=== PATIENT | male | born 1935 | race Caucasian/White ===

== ENCOUNTER 2018-01-15 12:01 | Inpatient (IN) | payer MEDICARE, OTHER ==
[~2018-01-15] VITALS: Ht 188 cm; Wt 123.6 kg
[2018-01-15 12:22] LABS: BASOPHILS # (AUTO) 0.03 x10^3/uL (0-0.1); BASOPHILS % (AUTO) 0 % (0-1); EOSINOPHILS # (AUTO) 0.22 x10^3/uL (0-0.4); EOSINOPHILS % (AUTO) 3 % (1-7); LYMPHOCYTES # (AUTO) 1.65 x10^3/uL (1-3.4); LYMPHOCYTES % (AUTO) 23 % (22-44); MD NO; MEAN CORPUSCULAR HEMOGLOBIN 31.1 pg (27.5-34.5); MEAN CORPUSCULAR HGB CONC 33.2 g/dL (33.2-36.2); MEAN CORPUSCULAR VOLUME 93.6 fL (81-97); MONOCYTES # (AUTO) 0.57 x10^3/uL (0.2-0.8); MONOCYTES % (AUTO) 8 % (2-9); NEUTROPHILS # (AUTO) 4.77 x10^3/uL (1.8-6.8); NEUTROPHILS % (AUTO) 66 % (42-75); PLATELET COUNT 224 x10^3/uL (130-400); RED BLOOD COUNT 4.72 x10^6/uL (4.38-5.82); RED CELL DISTRIBUTION WIDTH 14.2 % (9.4-14.8)
[2018-01-15 12:31] LABS: INTERNATIONAL NORMALIZED RATIO 1.06 (0.93-1.1); PROTHROMBIN TIME 10.9 Seconds (9.6-11.5)
[2018-01-15] MEDS ORDERED: ALTEPLASE 1 MG/ML ONE (12:41)
[2018-01-15 12:44] LABS: TROPONIN I < 0.015 ng/mL (0.000-0.045)
[2018-01-15] MEDS ORDERED: ALTEPLASE 0 MG in BAG 1 EACH IV ONE (13:00)
[2018-01-15] MEDS ORDERED: ALTEPLASE 9 MG in SYRINGE 1 EA IV ONE (13:00)
[2018-01-15] MEDS ORDERED: LEVO125T5 PO (13:12)
[2018-01-15] MEDS ORDERED: ALBU8.5H8 INH (13:12)
[2018-01-15] MEDS ORDERED: ATOR-2 PO (13:12)
[2018-01-15] MEDS ORDERED: TERA2CAP3 PO (13:12)
[2018-01-15] MEDS ORDERED: AMLO10TA2 PO (13:12)
[2018-01-15] MEDS ORDERED: CHOL10002 PO (13:12)
[2018-01-15] MEDS ORDERED: ALTEPLASE 81 MG in BAG 1 EACH IV ONE (13:30)
[2018-01-15] MEDS ORDERED: ACETAMINOPHEN 325 MG TABLET PO PRN (14:00)
[2018-01-15] MEDS ORDERED: POLYETHYLENE GLYCOL 17 GM PACKET PO PRN (14:00)
[2018-01-15] MEDS ORDERED: LABETALOL 5MG/ML, 20ML IVPush PRN (14:00)
[2018-01-15] MEDS ORDERED: ENALAPRILAT 1.25 MG/ML, 2ML IVPush PRN (14:00)
[2018-01-15] MEDS: SODIUM CHLORIDE 0.9% 1,000 ML IV SCH (15:13)
[2018-01-15] MEDS: RANITIDINE 50 MG in SODIUM CHLORIDE 0.9% 100 ML IV SCH ×2 (15:13→22:41)
[2018-01-15] MEDS: ATORVASTATIN 80 MG TABLET PO SCH (19:53)
[2018-01-15] MEDS ORDERED: FAMOTIDINE 20 MG/2 ML IVPush SCH (21:00)
[2018-01-16] MEDS: SODIUM CHLORIDE 0.9% 1,000 ML IV SCH ×3 (01:31→22:56)
[2018-01-16 04:00] VITALS: BP 150/87
[2018-01-16 04:40] LABS: BASOPHILS # (AUTO) 0.04 x10^3/uL (0-0.1); BASOPHILS % (AUTO) 1 % (0-1); EOSINOPHILS # (AUTO) 0.22 x10^3/uL (0-0.4); EOSINOPHILS % (AUTO) 3 % (1-7); LYMPHOCYTES # (AUTO) 1.28 x10^3/uL (1-3.4); LYMPHOCYTES % (AUTO) 20 % (22-44); MD NO; MEAN CORPUSCULAR HEMOGLOBIN 30.5 pg (27.5-34.5); MEAN CORPUSCULAR HGB CONC 32.7 g/dL (33.2-36.2); MEAN CORPUSCULAR VOLUME 93.4 fL (81-97); MEAN PLATELET VOLUME 8.9 fL (7.4-10.4); MONOCYTES # (AUTO) 0.49 x10^3/uL (0.2-0.8); MONOCYTES % (AUTO) 8 % (2-9); NEUTROPHILS # (AUTO) 4.54 x10^3/uL (1.8-6.8); NEUTROPHILS % (AUTO) 69 % (42-75); PLATELET COUNT 216 x10^3/uL (130-400); RED BLOOD COUNT 4.36 x10^6/uL (4.38-5.82); RED CELL DISTRIBUTION WIDTH 13.7 % (9.4-14.8)
[2018-01-16 04:56] LABS: ALANINE AMINOTRANSFERASE 29 U/L (12-78); ALBUMIN 3.5 g/dL (3.4-5.0); ANION GAP 6 mmol/L (5-15); CALCIUM 8.5 mg/dL (8.5-10.1); CHLORIDE 109 mmol/L (98-107); CREATININE 0.98 mg/dL (0.7-1.3)
[2018-01-16 05:00] LABS: ALKALINE PHOSPHATASE 71 U/L (45-117); BILIRUBIN,TOTAL 0.9 mg/dL (0.2-1.0); CHOL/HDL RATIO 2.4; CHOLESTEROL, TOTAL 132 mg/dL (140-239); HDL CHOL % 41 % (26-37); HDL CHOLESTEROL (DIRECT) 54 mg/dL (40-60); LDL CHOLESTEROL,CALCULATED 58 mg/dL (54-169); LDL/HDL RATIO 1.1 (0.5-3.0); TOTAL PROTEIN 7.1 g/dL (6.4-8.2); TRIGLYCERIDES 102 mg/dL (50-200); VLDL CHOLESTEROL 20 mg/dL (0-25)
[2018-01-16] MEDS: RANITIDINE 50 MG in SODIUM CHLORIDE 0.9% 100 ML IV SCH ×2 (08:32→17:04)
[2018-01-16] MEDS: LEVOTHYROXINE 125 MCG TABLET PO SCH (08:39)
[2018-01-16] MEDS: TERAZOSIN 2MG CAPSULE PO SCH (08:39)
[2018-01-16] MEDS: CHOLECALCIFEROL 1,000 UNIT TABLET PO SCH (08:40)
[2018-01-16] MEDS: SENNA/DOCUSATE TABLET PO SCH (08:40)
[2018-01-16] MEDS ORDERED: DO NOT GIVE XX PRN (13:30)
[2018-01-16] MEDS ORDERED: HEPARIN wt. based STROKE protocol IV PRN (13:30)
[2018-01-16] MEDS ORDERED: HEPARIN 25,000 UNITS/500ML PMX 500 ML IV PRN (13:30)
[2018-01-16] MEDS ORDERED: GADOBUTROL 15 MMOL/15 ML PFS ONE (13:57)
[2018-01-16 15:52] VITALS: BP 138/77
[2018-01-16 19:23] LABS: BASOPHILS # (AUTO) 0.05 x10^3/uL (0-0.1); BASOPHILS % (AUTO) 1 % (0-1); EOSINOPHILS # (AUTO) 0.23 x10^3/uL (0-0.4); EOSINOPHILS % (AUTO) 3 % (1-7); LYMPHOCYTES # (AUTO) 1.97 x10^3/uL (1-3.4); LYMPHOCYTES % (AUTO) 26 % (22-44); MD NO; MEAN CORPUSCULAR HEMOGLOBIN 31.2 pg (27.5-34.5); MEAN CORPUSCULAR VOLUME 94.6 fL (81-97); MONOCYTES # (AUTO) 0.54 x10^3/uL (0.2-0.8); MONOCYTES % (AUTO) 7 % (2-9); NEUTROPHILS # (AUTO) 4.89 x10^3/uL (1.8-6.8); NEUTROPHILS % (AUTO) 64 % (42-75); PLATELET COUNT 218 x10^3/uL (130-400); RED BLOOD COUNT 4.54 x10^6/uL (4.38-5.82); RED CELL DISTRIBUTION WIDTH 14.1 % (9.4-14.8)
[2018-01-16 19:31] LABS: INTERNATIONAL NORMALIZED RATIO 1.14 (0.93-1.1); PROTHROMBIN TIME 11.7 Seconds (9.6-11.5)
[2018-01-16 19:35] LABS: ALBUMIN 3.6 g/dL (3.4-5.0); ANION GAP 12 mmol/L (5-15); CALCIUM 8.5 mg/dL (8.5-10.1); CHLORIDE 110 mmol/L (98-107)
[2018-01-16 19:41] LABS: ALANINE AMINOTRANSFERASE 27 U/L (12-78); ALKALINE PHOSPHATASE 75 U/L (45-117); BILIRUBIN,TOTAL 0.9 mg/dL (0.2-1.0); CREATININE 1.28 mg/dL (0.7-1.3); TOTAL PROTEIN 7.5 g/dL (6.4-8.2); TROPONIN I < 0.015 ng/mL (0.000-0.045)
[2018-01-16] MEDS: ATORVASTATIN 80 MG TABLET PO SCH (21:00)
[2018-01-17] MEDS: RANITIDINE 50 MG in SODIUM CHLORIDE 0.9% 100 ML IV SCH ×3 (00:59→17:07)
[2018-01-17 03:30] VITALS: BP 147/84
[2018-01-17 05:40] LABS: BASOPHILS # (AUTO) 0.01 x10^3/uL (0-0.1); BASOPHILS % (AUTO) 0 % (0-1); EOSINOPHILS # (AUTO) 0.01 x10^3/uL (0-0.4); EOSINOPHILS % (AUTO) 0 % (1-7); LYMPHOCYTES # (AUTO) 0.67 x10^3/uL (1-3.4); LYMPHOCYTES % (AUTO) 5 % (22-44); MD NO; MEAN CORPUSCULAR HGB CONC 33.1 g/dL (33.2-36.2); MEAN CORPUSCULAR VOLUME 93.6 fL (81-97); MEAN PLATELET VOLUME 9.3 fL (7.4-10.4); MONOCYTES # (AUTO) 0.46 x10^3/uL (0.2-0.8); MONOCYTES % (AUTO) 4 % (2-9); NEUTROPHILS # (AUTO) 11.74 x10^3/uL (1.8-6.8); NEUTROPHILS % (AUTO) 91 % (42-75); PLATELET COUNT 201 x10^3/uL (130-400); RED BLOOD COUNT 4.61 x10^6/uL (4.38-5.82); RED CELL DISTRIBUTION WIDTH 13.9 % (9.4-14.8)
[2018-01-17 05:43] LABS: CALCIUM 8.7 mg/dL (8.5-10.1); CHLORIDE 108 mmol/L (98-107)
[2018-01-17 05:47] LABS: ANION GAP 10 mmol/L (5-15); CREATININE 1.03 mg/dL (0.7-1.3)
[2018-01-17] MEDS: SENNA/DOCUSATE TABLET PO SCH (09:00)
[2018-01-17] MEDS: TERAZOSIN 2MG CAPSULE PO SCH (09:00)
[2018-01-17] MEDS: LEVOTHYROXINE 125 MCG TABLET PO SCH (09:55)
[2018-01-17] MEDS: CHOLECALCIFEROL 1,000 UNIT TABLET PO SCH (09:55)
[2018-01-17] MEDS: TAMSULOSIN 0.4 MG CAP.ER.24H PO SCH (09:56)
[2018-01-17] MEDS: HEPARIN 25,000 UNITS/500ML PMX 500 ML IV PRN (14:46)
[2018-01-17 18:16] VITALS: BP 133/70
[2018-01-17] MEDS: ATORVASTATIN 80 MG TABLET PO SCH (20:49)
[2018-01-18] MEDS: RANITIDINE 50 MG in DEXTROSE 5% 100 ML IV SCH ×2 (00:01→08:25)
[2018-01-18 02:51] VITALS: BP 125/73
[2018-01-18] MEDS: SODIUM CHLORIDE 0.9% 1,000 ML IV SCH ×2 (02:51→23:20)
[2018-01-18] MEDS: HEPARIN 25,000 UNITS/500ML PMX 500 ML IV PRN (08:22)
[2018-01-18] MEDS: SENNA/DOCUSATE TABLET PO SCH (08:25)
[2018-01-18] MEDS: LEVOTHYROXINE 125 MCG TABLET PO SCH (08:25)
[2018-01-18] MEDS: TAMSULOSIN 0.4 MG CAP.ER.24H PO SCH (08:25)
[2018-01-18] MEDS: CHOLECALCIFEROL 1,000 UNIT TABLET PO SCH (08:25)
[2018-01-18 12:40] VITALS: BP 129/87
[2018-01-18] MEDS ORDERED: HEPARIN wt. based STROKE protocol MC PRN (14:05)
[2018-01-18] MEDS: TERAZOSIN 2MG CAPSULE PO SCH (14:22)
[2018-01-18] MEDS ORDERED: RANITIDINE 50 MG in SODIUM CHLORIDE 0.9% 100 ML IV SCH (16:30)
[2018-01-18] MEDS: APIXABAN 5 MG TABLET PO SCH ×2 (18:11→20:38)
[2018-01-18 19:38] VITALS: BP 105/68
[2018-01-18] MEDS: ATORVASTATIN 80 MG TABLET PO SCH (20:38)
[2018-01-19 00:18] VITALS: BP 118/55
[2018-01-19] MEDS: ONDANSETRON ODT 4 MG PO PRN ×2 (03:27→08:21)
[2018-01-19 05:30] LABS: MEAN CORPUSCULAR HEMOGLOBIN 31.3 pg (27.5-34.5); MEAN CORPUSCULAR HGB CONC 33.6 g/dL (33.2-36.2); MEAN CORPUSCULAR VOLUME 93.2 fL (81-97); MEAN PLATELET VOLUME 9.3 fL (7.4-10.4); PLATELET COUNT 136 x10^3/uL (130-400); RED BLOOD COUNT 4.03 x10^6/uL (4.38-5.82); RED CELL DISTRIBUTION WIDTH 14.1 % (9.4-14.8)
[2018-01-19 05:43] LABS: CHLORIDE 107 mmol/L (98-107)
[2018-01-19 05:52] LABS: ANION GAP 8 mmol/L (5-15); CALCIUM 8.7 mg/dL (8.5-10.1); CREATININE 1.36 mg/dL (0.7-1.3)
[2018-01-19 06:09] LABS: MD YES
[2018-01-19 06:12] LABS: <PLATELET ESTIMATE> ADEQUATE; <PLT MORPHOLOGY> NORMAL PLT MORPH; <RBC MORPHOLOGY> NORMAL; BAND#(MANUAL) 2.08 x10^3/uL; BANDS%(MANUAL) 16 % (0-7); EOS#(MANUAL) 0.13 x10^3/uL (0.0-0.4); EOS% (MANUAL) 1 % (1-7); LYMPH#(MANUAL) 0.26 x10^3/uL (1-3.4); LYMPHS% (MANUAL) 2 % (22-44); MONOS#(MANUAL) 0.91 x10^3/uL (0.3-2.7); MONOS% (MANUAL) 7 % (2-9); SEG#(MANUAL) 9.62 x10^3/uL (1.8-6.8); SEGS% (MANUAL) 74 % (42-75)
[2018-01-19] MEDS: ASPIRIN 81 MG TABLET EC PO SCH (06:23)
[2018-01-19 07:56] VITALS: BP 125/60
[2018-01-19] MEDS: SENNA/DOCUSATE TABLET PO SCH (08:08)
[2018-01-19] MEDS: TERAZOSIN 2MG CAPSULE PO SCH (08:21)
[2018-01-19] MEDS: CHOLECALCIFEROL 1,000 UNIT TABLET PO SCH (08:21)
[2018-01-19] MEDS: APIXABAN 5 MG TABLET PO SCH ×2 (08:22→20:42)
[2018-01-19] MEDS: LEVOTHYROXINE 125 MCG TABLET PO SCH (08:22)
[2018-01-19] MEDS: TAMSULOSIN 0.4 MG CAP.ER.24H PO SCH (08:22)
[2018-01-19 13:47] VITALS: BP 114/68
[2018-01-19] MEDS ORDERED: AMPICILLIN/SULBACTAM 3 GM in SODIUM CHLORIDE 0.9% 100 ML IV SCH (17:30)
[2018-01-19 18:50] LABS: MICROSCOPIC INDICATED
[2018-01-19] MEDS: SODIUM CHLORIDE 0.9% 1,000 ML IV SCH (19:00)
[2018-01-19] MEDS ORDERED: CEFTRIAXONE 1,000 MG IM SCH (20:00)
[2018-01-19] MEDS ORDERED: CEFTRIAXONE PMX 1GM/50ML 50 ML IV SCH (20:30)
[2018-01-19] MEDS: ATORVASTATIN 80 MG TABLET PO SCH (20:42)
[2018-01-19 21:00] VITALS: BP 129/81
[2018-01-20 03:55] VITALS: BP 132/78
[2018-01-20 04:57] LABS: MEAN CORPUSCULAR HEMOGLOBIN 31.3 pg (27.5-34.5); MEAN CORPUSCULAR HGB CONC 33.7 g/dL (33.2-36.2); MEAN CORPUSCULAR VOLUME 92.9 fL (81-97); MEAN PLATELET VOLUME 9.6 fL (7.4-10.4); PLATELET COUNT 138 x10^3/uL (130-400); RED BLOOD COUNT 4.07 x10^6/uL (4.38-5.82); RED CELL DISTRIBUTION WIDTH 14.4 % (9.4-14.8)
[2018-01-20 05:03] LABS: ALBUMIN 2.6 g/dL (3.4-5.0); CALCIUM 8.6 mg/dL (8.5-10.1); CHLORIDE 108 mmol/L (98-107)
[2018-01-20 05:09] LABS: ALANINE AMINOTRANSFERASE 24 U/L (12-78); ALKALINE PHOSPHATASE 64 U/L (45-117); ANION GAP 6 mmol/L (5-15); TOTAL PROTEIN 6.6 g/dL (6.4-8.2)
[2018-01-20 05:37] LABS: MD YES
[2018-01-20 05:38] LABS: BAND#(MANUAL) 1.01 x10^3/uL; BANDS%(MANUAL) 11 % (0-7); EOS#(MANUAL) 0.37 x10^3/uL (0.0-0.4); EOS% (MANUAL) 4 % (1-7); LYMPH#(MANUAL) 0.74 x10^3/uL (1-3.4); LYMPHS% (MANUAL) 8 % (22-44); MONOS#(MANUAL) 0.46 x10^3/uL (0.3-2.7); MONOS% (MANUAL) 5 % (2-9); SEG#(MANUAL) 6.62 x10^3/uL (1.8-6.8); SEGS% (MANUAL) 72 % (42-75)
[2018-01-20 05:39] LABS: <PLATELET ESTIMATE> ADEQUATE; <PLT MORPHOLOGY> NORMAL PLT MORPH; <RBC MORPHOLOGY> NORMAL
[2018-01-20] MEDS: LEVOTHYROXINE 125 MCG TABLET PO SCH (06:33)
[2018-01-20] MEDS: ASPIRIN 81 MG TABLET EC PO SCH (06:33)
[2018-01-20 07:15] VITALS: BP 112/68
[2018-01-20] MEDS: APIXABAN 5 MG TABLET PO SCH ×2 (09:23→21:17)
[2018-01-20] MEDS: SENNA/DOCUSATE TABLET PO SCH (09:24)
[2018-01-20] MEDS: TAMSULOSIN 0.4 MG CAP.ER.24H PO SCH (09:25)
[2018-01-20] MEDS: CHOLECALCIFEROL 1,000 UNIT TABLET PO SCH (09:25)
[2018-01-20] MEDS: TERAZOSIN 2MG CAPSULE PO SCH (09:25)
[2018-01-20] MEDS: CEFTRIAXONE PMX 2GM/50ML 50 ML IV SCH (11:27)
[2018-01-20 13:45] VITALS: BP 116/73
[2018-01-20] MEDS ORDERED: FUROSEMIDE 20 MG/2 ML IV ONE (17:30)
[2018-01-20 19:22] VITALS: BP 125/83
[2018-01-20] MEDS: ATORVASTATIN 80 MG TABLET PO SCH (21:17)
[2018-01-21 02:08] VITALS: BP 149/62
[2018-01-21 05:15] LABS: ANION GAP 6 mmol/L (5-15); CALCIUM 8.7 mg/dL (8.5-10.1); CHLORIDE 105 mmol/L (98-107)
[2018-01-21 05:16] LABS: MEAN CORPUSCULAR HEMOGLOBIN 31.3 pg (27.5-34.5); MEAN CORPUSCULAR HGB CONC 33.3 g/dL (33.2-36.2); MEAN CORPUSCULAR VOLUME 93.8 fL (81-97); MEAN PLATELET VOLUME 9.4 fL (7.4-10.4); PLATELET COUNT 152 x10^3/uL (130-400); RED BLOOD COUNT 4.31 x10^6/uL (4.38-5.82); RED CELL DISTRIBUTION WIDTH 14.2 % (9.4-14.8)
[2018-01-21 05:17] LABS: CREATININE 0.94 mg/dL (0.7-1.3)
[2018-01-21] MEDS: LEVOTHYROXINE 125 MCG TABLET PO SCH (05:35)
[2018-01-21] MEDS: ASPIRIN 81 MG TABLET EC PO SCH (05:35)
[2018-01-21 06:15] LABS: MD YES
[2018-01-21 06:17] LABS: BAND#(MANUAL) 0.36 x10^3/uL; BANDS%(MANUAL) 5 % (0-7); EOS#(MANUAL) 0.58 x10^3/uL (0.0-0.4); EOS% (MANUAL) 8 % (1-7); LYMPH#(MANUAL) 1.08 x10^3/uL (1-3.4); LYMPHS% (MANUAL) 15 % (22-44); MONOS#(MANUAL) 0.65 x10^3/uL (0.3-2.7); MONOS% (MANUAL) 9 % (2-9); SEG#(MANUAL) 4.54 x10^3/uL (1.8-6.8); SEGS% (MANUAL) 63 % (42-75)
[2018-01-21 06:18] LABS: <PLATELET ESTIMATE> ADEQUATE; <PLT MORPHOLOGY> NORMAL PLT MORPH; <RBC MORPHOLOGY> NORMAL
[2018-01-21 06:51] VITALS: BP 128/78
[2018-01-21] MEDS: CHOLECALCIFEROL 1,000 UNIT TABLET PO SCH (09:05)
[2018-01-21] MEDS: SENNA/DOCUSATE TABLET PO SCH (09:05)
[2018-01-21] MEDS: TAMSULOSIN 0.4 MG CAP.ER.24H PO SCH (09:05)
[2018-01-21] MEDS: APIXABAN 5 MG TABLET PO SCH ×2 (09:05→21:19)
[2018-01-21] MEDS: TERAZOSIN 2MG CAPSULE PO SCH (09:14)
[2018-01-21] MEDS: CEFTRIAXONE PMX 2GM/50ML 50 ML IV SCH (11:52)
[2018-01-21 12:03] VITALS: BP 110/69
[2018-01-21] MEDS ORDERED: POTASSIUM CHLORIDE 20 MEQ TAB.ER.PRT PO ONE ×2 (14:00→19:00)
[2018-01-21] MEDS ORDERED: FUROSEMIDE 20 MG/2 ML IV ONE (14:00)
[2018-01-21 19:59] VITALS: BP 129/75
[2018-01-21] MEDS: ATORVASTATIN 80 MG TABLET PO SCH (21:19)
[2018-01-22 02:21] VITALS: BP 146/75
[2018-01-22] MEDS: LEVOTHYROXINE 125 MCG TABLET PO SCH (05:16)
[2018-01-22] MEDS: ASPIRIN 81 MG TABLET EC PO SCH (05:16)
[2018-01-22 05:20] LABS: BASOPHILS # (AUTO) 0.03 x10^3/uL (0-0.1); BASOPHILS % (AUTO) 1 % (0-1); EOSINOPHILS # (AUTO) 0.38 x10^3/uL (0-0.4); EOSINOPHILS % (AUTO) 6 % (1-7); LYMPHOCYTES % (AUTO) 21 % (22-44); MD NO; MEAN CORPUSCULAR HEMOGLOBIN 30.7 pg (27.5-34.5); MEAN CORPUSCULAR HGB CONC 33.3 g/dL (33.2-36.2); MEAN CORPUSCULAR VOLUME 92.3 fL (81-97); MEAN PLATELET VOLUME 10.1 fL (7.4-10.4); MONOCYTES # (AUTO) 0.65 x10^3/uL (0.2-0.8); MONOCYTES % (AUTO) 11 % (2-9); NEUTROPHILS # (AUTO) 3.77 x10^3/uL (1.8-6.8); NEUTROPHILS % (AUTO) 62 % (42-75); PLATELET COUNT 170 x10^3/uL (130-400); RED BLOOD COUNT 4.21 x10^6/uL (4.38-5.82); RED CELL DISTRIBUTION WIDTH 13.8 % (9.4-14.8)
[2018-01-22 05:28] LABS: CHLORIDE 103 mmol/L (98-107)
[2018-01-22 05:39] LABS: ALANINE AMINOTRANSFERASE 27 U/L (12-78); ALBUMIN 2.7 g/dL (3.4-5.0); ALKALINE PHOSPHATASE 73 U/L (45-117); ANION GAP 8 mmol/L (5-15); BILIRUBIN,TOTAL 0.9 mg/dL (0.2-1.0); CALCIUM 8.7 mg/dL (8.5-10.1); CREATININE 0.81 mg/dL (0.7-1.3); TOTAL PROTEIN 6.7 g/dL (6.4-8.2)
[2018-01-22 07:40] VITALS: BP 124/74
[2018-01-22] MEDS: TERAZOSIN 2MG CAPSULE PO SCH (10:13)
[2018-01-22] MEDS: APIXABAN 5 MG TABLET PO SCH (10:13)
[2018-01-22] MEDS: TAMSULOSIN 0.4 MG CAP.ER.24H PO SCH (10:13)
[2018-01-22] MEDS: CHOLECALCIFEROL 1,000 UNIT TABLET PO SCH (10:13)
[2018-01-22] MEDS: SENNA/DOCUSATE TABLET PO SCH (10:13)
[2018-01-22] MEDS: CEFTRIAXONE PMX 2GM/50ML 50 ML IV SCH (12:09)
[2018-01-22 13:37] VITALS: BP 116/75
[2018-01-22] MEDS ORDERED: ATOR-2 PO (15:42)
[2018-01-22] MEDS ORDERED: CEFTRIAXONE IVPB (15:42)
[2018-01-22] MEDS ORDERED: APIX5TAB PO (15:42)
[2018-01-22] MEDS ORDERED: TAMS-11 PO (15:42)
== END 2018-01-22 18:07 | DRG 61 ==
LOC: ED 13:07 → EDIP 13:08 → ED 13:44 → CCU 14:29 → 5SO 01-16 15:43 → CCU 01-16 19:41 → 5SO 01-17 18:07
PROVIDERS: ADMIT Internal Medicine; ATTEND Internal Medicine
PROC: 3E03317 Introduction of Other Thrombolytic into Peripheral Vein, Percutaneous Approach (ICD-10-PCS; 2018-01-15)
PROC: 02HV33Z Insertion of Infusion Device into Superior Vena Cava, Percutaneous Approach (ICD-10-PCS; principal; 2018-01-21)
PROC: B548ZZA Ultrasonography of Superior Vena Cava, Guidance (ICD-10-PCS; 2018-01-21)
DX: I63.9 Cerebral infarction, unspecified (principal); A41.9 Sepsis, unspecified organism; E43 Unspecified severe protein-calorie malnutrition; N17.9 Acute kidney failure, unspecified; E87.5 Hyperkalemia; E87.70 Fluid overload, unspecified; I48.91 Unspecified atrial fibrillation; N39.0 Urinary tract infection, site not specified; I11.9 Hypertensive heart disease without heart failure; E66.9 Obesity, unspecified; N40.0 Benign prostatic hyperplasia without lower urinary tract symptoms; E03.9 Hypothyroidism, unspecified; E55.9 Vitamin D deficiency, unspecified; E78.5 Hyperlipidemia, unspecified; R29.810 Facial weakness; Z68.35 Body mass index [BMI] 35.0-35.9, adult; Z79.899 Other long term (current) drug therapy; Z82.49 Family history of ischemic heart disease and other diseases of the circulatory system; Z86.73 Personal history of transient ischemic attack (TIA), and cerebral infarction without residual deficits; Z87.891 Personal history of nicotine dependence
CPT/HCPCS: 36415; 36569; 70450; 70553; 71045; 74018; 74230; 76770; 76937; 77001; 80048; 80053; 80061; 81001; 82962; 83605; 83735; 83880; 84100; 84145; 84484; 85025; 85520; 85610; 85730; 87040; 87077; 87081; 87086; 87186; 93005; 93306; 93880; 96365; A9585; J0696; J1644; J2780; J2997; Q0162; 92523-GN; C1751; J1940; J7030